=== PATIENT | female | born 1965 | race Caucasian/White ===

== ENCOUNTER 2017-02-27 16:45 | Emergency (ER) | payer MEDICAID ==
[~2017-02-27] VITALS: Ht 157.5 cm; Wt 77.1 kg
[~2017-02-27 16:45] MED LIST: ASPI81CT89 PO; INSU100S10 SUBQ; INSU100S5 SUBQ; INSULIN
[2017-02-27 17:19] VITALS: BP 157/66
--- NOTE | 2017-02-27 19:07 | NUR ---
Patient ambulated to [facility] with family to be evaluated as fast track by Dr. Patterson.
--- NOTE | 2017-02-27 19:13 | NUR ---
Dr. Patterson evaluating patient as fast track in [facility].
[2017-02-27 19:37] VITALS: BP 147/68
--- NOTE | 2017-02-27 19:37 | NUR ---
Patient discharged with v/s stable. Written and verbal after care instructions given and explained. Patient alert, oriented and verbalized understanding of instructions. Ambulatory with steady gait. All questions addressed prior to discharge. ID band removed. Patient advised to follow up with PMD. Rx of AMOXICILLIN 875 TID given. Patient educated on indication of medication including possible reaction and side effects. Opportunity to ask questions provided and answered.
== END 2017-02-27 19:37 | disposition home or self-care (01) ==
LOC: MED 16:45
DX: H66.91 Otitis media, unspecified, right ear (principal); E11.9 Type 2 diabetes mellitus without complications; Z79.4 Long term (current) use of insulin
CPT/HCPCS: 99283

== ENCOUNTER 2018-03-13 11:20 | Emergency (ER) | payer MEDICAID ==
[~2018-03-13] VITALS: Ht 154.9 cm; Wt 68.7 kg
[2018-03-13 11:32] VITALS: BP 141/85
[2018-03-13 12:25] LABS: BASOPHILS % (AUTO) 0.9 % (0.0-2.0); EOSINOPHILS # (AUTO) 0.1 K/uL (0-0.4); EOSINOPHILS % (AUTO) 1.2 % (0.0-4.0); HEMATOCRIT 37.2 % (36-48); HEMOGLOBIN 12.2 g/dL (12.0-16.0); LYMPHOCYTES # (AUTO) 1.7 K/uL (2.5-16.5); LYMPHOCYTES % (AUTO) 33.2 % (20.5-51.1); MEAN CORPUSCULAR HEMOGLOBIN 30 pg (27-31); MEAN CORPUSCULAR HGB CONC 33 g/dL (33-37); MEAN CORPUSCULAR VOLUME 91.5 fL (80-94); MONOCYTES # (AUTO) 0.4 K/uL (0.8-1.0); MONOCYTES % (AUTO) 7.5 % (1.7-9.3); NEUTROPHILS % (AUTO) 57.2 % (42.2-75.2); PLATELET COUNT (AUTO) 415 K/uL (140-450); RED BLOOD CELL COUNT(AUTO) 4.07 MIL/uL (4.20-5.40); RED CELL DISTRIBUTION WIDTH 13.7 % (11.6-13.7); WHITE BLOOD COUNT (AUTO) 5.2 K/uL (4.8-10.8)
[2018-03-13 12:40] LABS: APPEARANCE,URINE CLEAR (CLEAR); BILIRUBIN,URINE NEGATIVE (NEGATIVE); BLOOD, URINE NEGATIVE (NEGATIVE); COLOR,URINE YELLOW (YELLOW); NITRITE, URINE NEGATIVE (NEGATIVE); PH,URINE 5.5 (5.0-9.0); UGLUCOSE 3+ (NEGATIVE)
[2018-03-13 12:48] LABS: ANION GAP 10.1 (8-16); CARBON DIOXIDE 27.3 mmol/L (21-32); POTASSIUM 4.4 mmol/L (3.5-5.1)
[2018-03-13 12:49] LABS: ALBUMIN 3.8 g/dL (3.4-5.0); TOTAL BILIRUBIN 0.3 mg/dL (0.0-1.0)
[2018-03-13 12:52] LABS: LEUKOCYTE ESTERASE ,URINE 1+ (NEGATIVE); RBC,URINE 0-5 (RARE) /HPF (0-5)
[2018-03-13] MEDS: KETOROLAC 60 MG/2 ML VIAL IM ONE (13:23)
[2018-03-13] MEDS: HYDROcodone/APAP 5/325 MG 1 TAB TAB PO ONE (18:00)
[2018-03-13 18:34] VITALS: BP 136/80
== END 2018-03-13 18:34 | disposition home or self-care (01) ==
LOC: MED 11:20
DX: R10.32 Left lower quadrant pain (principal); R35.0 Frequency of micturition; R53.1 Weakness; E11.9 Type 2 diabetes mellitus without complications; Z90.89 Acquired absence of other organs; Z79.899 Other long term (current) drug therapy
CPT/HCPCS: 36415; 74176; 76830; 80053; 81001; 82948; 83690; 85025; 87086; 93976; 96372; 99285; J1885; 81025; 87186

== ENCOUNTER 2019-01-08 08:33 | Emergency (ER) | payer MEDICAID ==
[~2019-01-08] VITALS: Ht 162.6 cm; Wt 68.9 kg
[~2019-01-08 08:33] MED LIST changes: +ASPI-1718 PO; -ASPI81CT89 PO
[2019-01-08 08:41] VITALS: BP 138/84
[2019-01-08 08:42] VITALS: BP 138/84
[2019-01-08] MEDS ORDERED: METF500T PO (08:45)
--- NOTE | 2019-01-08 08:49 | NUR ---
PT WHEELCHAIR ASSISTED TO BED 7 BY ELENA NASCIMENTO
--- NOTE | 2019-01-08 08:51 | NUR ---
53 Y FEMALE C/O RIGHT KNEE PAIN X 3 WEEKS AND WORSENING TODAY; PT STATES SHE HAD A FALL 3 YEARS AGO BUT DENIES RECENT INJURY OR TRAUMA. NO OBVIOUS DEFORMITY. +R PEDAL PULSE. +CAP REFILL <3 SECONDS. +ROM WITH PAIN 11/25. VSS AT THSI TIME. PT [id number]. BED IS DOWN, LOCKED, BED RAIL X 1, ERMD TO SEE PT. HX DM
--- NOTE | 2019-01-08 09:11 | NUR ---
DR DAMIAN AT BEDSIDE
--- NOTE | 2019-01-08 09:22 | NUR ---
X RAY AT BEDSIDE.
--- NOTE | 2019-01-08 09:54 | NUR ---
Applied nehemias wrap to patients right knee. Patient tolerated nehemias wrap well
--- NOTE | 2019-01-08 10:01 | NUR ---
Patient discharged BY DR DAMIAN. Written and verbal after care instructions given and explained BY DR DAMIAN. Patient alert, oriented. ID band removed. Rx of NAPROSYN given.
== END 2019-01-08 10:01 | disposition home or self-care (01) ==
LOC: MED 08:33
DX: S83.91XA Sprain of unspecified site of right knee, initial encounter (principal); E11.9 Type 2 diabetes mellitus without complications; Z90.49 Acquired absence of other specified parts of digestive tract; Z79.84 Long term (current) use of oral hypoglycemic drugs; X58.XXXA Exposure to other specified factors, initial encounter; Y93.89 Activity, other specified; Y92.89 Other specified places as the place of occurrence of the external cause; Y99.8 Other external cause status
CPT/HCPCS: 73562; 99283; Q0092

== ENCOUNTER 2022-10-09 17:46 | Emergency (ER) | payer MEDICAID ==
[~2022-10-09] VITALS: Ht 154.9 cm; Wt 68.0 kg
[~2022-10-09 17:46] MED LIST changes: -ASPI-1718 PO; -INSU100S10 SUBQ; -INSU100S5 SUBQ; -INSULIN; +METF-346 PO
[2022-10-09 18:03] VITALS: BP 152/85
--- NOTE | 2022-10-09 18:08 | NUR ---
RIGHT KNEE PAIN AND SWELLING ONSET SUNDAY. DENIES FALLS. PMH: DM, HTN, HIGH CHOLESTEROL MEDS: TRULICITY, METFORMIN
[2022-10-09] MEDS ORDERED: NAPR-1704 PO (19:40)
[2022-10-09] MEDS ORDERED: CEPH-588 PO (19:40)
--- NOTE | 2022-10-09 19:52 | NUR ---
nehemias wrap x 1 applied to r knee. + cms. crutches given and pt returned safe demonstration.
--- NOTE | 2022-10-09 19:57 | NUR ---
PT CLEARED FOR D/C BY GARCIA, INSIDE SALES RECRUITER. ALL D/C INSTRUCTIONS AND MEDICATION INFOMATION PROVIDED BY GARCIA, INSIDE SALES RECRUITER. RX OF NAPROSYN AND KEFLEX PROVIDED.
== END 2022-10-09 19:57 | disposition home or self-care (01) ==
LOC: MED 17:46
DX: L03.115 Cellulitis of right lower limb (principal); E11.9 Type 2 diabetes mellitus without complications; Z79.899 Other long term (current) drug therapy; Z79.1 Long term (current) use of non-steroidal anti-inflammatories (NSAID); Z79.2 Long term (current) use of antibiotics
CPT/HCPCS: 73562; 99284

== ENCOUNTER 2023-10-23 20:42 | Emergency (ER) | payer MEDICAID, OTHER ==
[~2023-10-23] VITALS: Ht 154.9 cm; Wt 72.1 kg
[~2023-10-23 20:42] MED LIST changes: +CEPH-588 PO; +NAPR-1704 PO
[2023-10-23 20:50] VITALS: BP 147/75; PULSE 98; RESP 19; TEMP 97.9; O2SAT 100
[2023-10-23 22:18] VITALS: O2SAT 97
[2023-10-23 22:26] LABS: BASOPHILS # (AUTO) 0.1 K/uL (0.00-0.22); BASOPHILS % (AUTO) 1.3 % (0.0-2.0); EOSINOPHILS # (AUTO) 0.1 K/uL (0-0.4); HEMATOCRIT 35.3 % (36-48); HEMOGLOBIN 11.8 g/dL (12.0-16.0); LYMPHOCYTES # (AUTO) 1.7 K/uL (2.5-16.5); LYMPHOCYTES % (AUTO) 26.9 % (20.5-51.1); MEAN CORPUSCULAR HEMOGLOBIN 30 pg (27-31); MEAN CORPUSCULAR HGB CONC 34 g/dL (33-37); MEAN CORPUSCULAR VOLUME 89.4 fL (80-94); MONOCYTES # (AUTO) 0.6 K/uL (0.8-1.0); MONOCYTES % (AUTO) 8.6 % (1.7-9.3); NEUTROPHILS % (AUTO) 62.2 % (42.2-75.2); PLATELET COUNT (AUTO) 291 K/uL (140-450); RED BLOOD CELL COUNT(AUTO) 3.94 MIL/uL (4.20-5.40); RED CELL DISTRIBUTION WIDTH 14.8 % (11.6-13.7); WHITE BLOOD COUNT (AUTO) 6.4 K/uL (4.8-10.8)
[2023-10-23 22:36] LABS: ANION GAP 12.5 (8-16); CALCIUM 9.5 mg/dL (8.5-10.1); CARBON DIOXIDE 28.3 mmol/L (21-32); CREATININE 1.1 mg/dL (0.6-1.3); POTASSIUM 3.8 mmol/L (3.5-5.1)
[2023-10-24] VITALS: O2SAT 97
[2023-10-24 02:26] VITALS: O2SAT 98
[2023-10-24] MEDS: NITROGLYCERIN 0.4 MG TAB SL ONE (02:50)
[2023-10-24 04:52] VITALS: O2SAT 98
[2023-10-24 04:53] VITALS: BP 148/66; PULSE 100; RESP 12; O2SAT 95
== END 2023-10-24 06:39 | disposition short-term general hospital (02) ==
LOC: MED 20:42
DX: R07.9 Chest pain, unspecified (principal); Z20.822 Contact with and (suspected) exposure to COVID-19; I10 Essential (primary) hypertension; E11.9 Type 2 diabetes mellitus without complications; E78.00 Pure hypercholesterolemia, unspecified; Z79.899 Other long term (current) drug therapy; Z79.4 Long term (current) use of insulin
CPT/HCPCS: 36415; 71045; 80048; 84484; 85025; 93005; 99285